=== PATIENT | male | born 1955 | race Caucasian/White ===

== ENCOUNTER → 2023-04-11 | Outpatient (CLI) | payer OTHER ==
[~2023-04-11] MED LIST: DIATR MEGLU/DIATRIZOATE SODIUM 30 ML BOTTLE ONE; FLUO20CA36 PO; SIMV-43 PO
== END | disposition home or self-care (01) ==
LOC: RAH 08:52
PROVIDERS: ATTEND Surgery
DX: K57.30 Diverticulosis of large intestine without perforation or abscess without bleeding (principal); Z93.2 Ileostomy status
CPT/HCPCS: 74270; Q9963 ×2

== ENCOUNTER 2023-04-22 15:00 | Inpatient (IN) | payer OTHER ==
[~2023-04-22] VITALS: Ht 174 cm; Wt 51.7 kg
[2023-04-22 13:16] VITALS: BP 104/53; PULSE 57; RESP 18
[2023-04-22 13:18] LABS: BASOPHILS # (AUTO) 0.02 K/uL (0.00-0.20); BASOPHILS % (AUTO) 0.2 % (0.0-5.0); EOSINOPHILS # (AUTO) 0.02 K/uL (0.00-0.70); EOSINOPHILS % (AUTO) 0.2 % (0.0-8.0); HEMATOCRIT 33.9 % (42-54); IMMATURE GRANULOCYTE ABSOLUTE 0.06 K/uL (0-1); LYMPHOCYTES # (AUTO) 0.7 K/uL (1.0-4.8); LYMPHOCYTES % (AUTO) 6.8 % (21.0-51.0); MEAN CORPUSCULAR HEMOGLOBIN 31.8 pg (27.0-33.0); MEAN CORPUSCULAR HGB CONC 33.6 g/dL (32.0-36.0); MEAN CORPUSCULAR VOLUME 94.7 fL (79-99); MONOCYTES # (AUTO) 1.3 K/uL (0.1-1.0); MONOCYTES % (AUTO) 11.8 % (3.0-13.0); NEUTROPHILS # (AUTO) 8.6 K/uL (1.8-7.7); NEUTROPHILS % (AUTO) 80.4 % (40.0-77.0); PLATELET COUNT (AUTO) 205 K/uL (130-400); RED BLOOD CELL COUNT(AUTO) 3.58 MIL/uL (4.50-6.20); RED CELL DISTRIBUTION WIDTH 14.8 % (11.0-15.5); WHITE BLOOD COUNT (AUTO) 10.7 K/uL (4.8-10.8)
[2023-04-22 13:29] LABS: INR < 0.93 (0.85-1.15); PROTHROMBIN TIME 10.2 SEC (9.6-11.6)
[2023-04-22 13:30] LABS: PARTIAL THROMBOPLASTIN TIME 24.1 SEC (26.3-35.5)
[2023-04-22 13:31] LABS: BILIRUBIN,TOTAL 0.2 mg/dL (0.2-1.0); CREATININE 0.7 mg/dL (0.5-1.5); POTASSIUM 5.1 mmol/L (3.5-5.1)
[~2023-04-22 15:00] MED LIST changes: -DIATR MEGLU/DIATRIZOATE SODIUM 30 ML BOTTLE ONE
[2023-04-29] VITALS (27 sets, daily range): BP systolic 114–144; BP diastolic 62–81; PULSE 65–75; RESP 15–21
[2023-04-29] MEDS ORDERED: LACTATED RINGERS 1000ML 1,000 ML IV ONE (09:25)
[2023-04-29] MEDS ORDERED: MEROPENEM 1 GM VIAL ONE (09:25)
[2023-04-29] MEDS ORDERED: BUPIVACAINE/PF 0.25% 30ML VIAL IJ ONE (09:33)
[2023-04-29] MEDS ORDERED: LIDOCAINE 1%-EPI 1:100,000 20 ML VIAL ONE (09:34)
[2023-04-29] MEDS ORDERED: FAMOTIDINE 20MG VIAL IV ONE (09:45)
[2023-04-29] MEDS ORDERED: HYDROMORPHONE 1 MG INJ ONE (09:45)
[2023-04-29] MEDS ORDERED: MIDAZOLAM HCL 1 MG/ML 2ML VIAL ONE (09:50)
[2023-04-29] MEDS ORDERED: FENTANYL CITRATE PF 50 MCG/1 ML 2ML VIAL ONE (09:52)
[2023-04-29] MEDS ORDERED: GLYCOPYRROLATE 1 MG/5 ML SYRINGE ONE (09:52)
[2023-04-29] MEDS ORDERED: LIDOCAINE PF 100MG/5ML (2%) SYRINGE 5ML ONE (09:52)
[2023-04-29] MEDS ORDERED: PROPOFOL 10 MG/ML 20ML VIAL IV ONE (09:52)
[2023-04-29] MEDS ORDERED: ROCURONIUM 10MG/1ML SYR 10 MG/ML ML ONE (09:53)
[2023-04-29] MEDS ORDERED: ONDANSETRON 4MG INJ ONE (10:07)
[2023-04-29] MEDS ORDERED: NEOSTIGMINE 5MG/5ML SYR IV ONE (10:46)
[2023-04-29] MEDS: HEPARIN 5,000 UNIT VIAL SQ SCH ×2 (11:29→20:10)
[2023-04-29] MEDS ORDERED: ONDANSETRON 4MG INJ IVP PRN (11:30)
[2023-04-29] MEDS: HYDROCODONE/ACETAMINOPHEN 5/325 MG TAB PO PRN (14:29)
[2023-04-29] MEDS: LACTATED RINGERS 1000ML 1,000 ML IV SCH (14:30)
[2023-04-29] MEDS: HYDROMORPHONE 0.5 MG SYG (0.5MG/0.5ML) IVP PRN ×2 (16:27→21:23)
[2023-04-30] VITALS (7 sets, daily range): BP systolic 119–152; BP diastolic 72–90; PULSE 69–87; RESP 17–20; O2SAT 98
[2023-04-30 03:52] LABS: BASOPHILS # (AUTO) 0.04 K/uL (0.00-0.20); BASOPHILS % (AUTO) 0.5 % (0.0-5.0); EOSINOPHILS # (AUTO) 0.08 K/uL (0.00-0.70); EOSINOPHILS % (AUTO) 0.9 % (0.0-8.0); IMMATURE GRANULOCYTE ABSOLUTE 0.04 K/uL (0-1); LYMPHOCYTES # (AUTO) 0.7 K/uL (1.0-4.8); LYMPHOCYTES % (AUTO) 7.8 % (21.0-51.0); MEAN CORPUSCULAR HEMOGLOBIN 31.9 pg (27.0-33.0); MEAN CORPUSCULAR HGB CONC 33.8 g/dL (32.0-36.0); MEAN CORPUSCULAR VOLUME 94.2 fL (79-99); MONOCYTES # (AUTO) 1.1 K/uL (0.1-1.0); MONOCYTES % (AUTO) 12.7 % (3.0-13.0); NEUTROPHILS # (AUTO) 6.7 K/uL (1.8-7.7); NEUTROPHILS % (AUTO) 77.6 % (40.0-77.0); PLATELET COUNT (AUTO) 212 K/uL (130-400); RED BLOOD CELL COUNT(AUTO) 3.61 MIL/uL (4.50-6.20); WHITE BLOOD COUNT (AUTO) 8.7 K/uL (4.8-10.8)
[2023-04-30 03:55] LABS: CREATININE 0.8 mg/dL (0.5-1.5); POTASSIUM 3.6 mmol/L (3.5-5.1)
[2023-04-30 04:52] LABS: WBC MORPHOLOGY CONSISTENT W/DIFF
[2023-04-30] MEDS: HEPARIN 5,000 UNIT VIAL SQ SCH ×2 (08:36→21:51)
[2023-04-30] MEDS: LACTATED RINGERS 1000ML 1,000 ML IV SCH (08:38)
[2023-04-30] MEDS: HYDROCODONE/ACETAMINOPHEN 5/325 MG TAB PO PRN ×2 (08:47→13:00)
[2023-04-30] MEDS ORDERED: ONDANSETRON 4MG TABLET PO PRN (17:30)
[2023-04-30] MEDS ORDERED: FLUOXETINE HCL 20 MG CAPSULE PO SCH (21:00)
[2023-04-30] MEDS ORDERED: SIMVASTATIN 20 MG TABLET PO SCH (21:00)
[2023-05-01] VITALS: BP 140/78; PULSE 82; RESP 20
[2023-05-01] MEDS: LACTATED RINGERS 1000ML 1,000 ML IV SCH (03:30)
[2023-05-01 03:57] LABS: BASOPHILS # (AUTO) 0.03 K/uL (0.00-0.20); BASOPHILS % (AUTO) 0.4 % (0.0-5.0); EOSINOPHILS # (AUTO) 0.06 K/uL (0.00-0.70); EOSINOPHILS % (AUTO) 0.7 % (0.0-8.0); HEMATOCRIT 34.1 % (42-54); IMMATURE GRANULOCYTE ABSOLUTE 0.02 K/uL (0-1); LYMPHOCYTES # (AUTO) 0.6 K/uL (1.0-4.8); LYMPHOCYTES % (AUTO) 7.5 % (21.0-51.0); MEAN CORPUSCULAR HGB CONC 33.7 g/dL (32.0-36.0); MEAN CORPUSCULAR VOLUME 91.9 fL (79-99); MONOCYTES % (AUTO) 11.9 % (3.0-13.0); NEUTROPHILS # (AUTO) 6.6 K/uL (1.8-7.7); NEUTROPHILS % (AUTO) 79.3 % (40.0-77.0); PLATELET COUNT (AUTO) 208 K/uL (130-400); RED BLOOD CELL COUNT(AUTO) 3.71 MIL/uL (4.50-6.20); RED CELL DISTRIBUTION WIDTH 15.2 % (11.0-15.5); WHITE BLOOD COUNT (AUTO) 8.3 K/uL (4.8-10.8)
[2023-05-01 04:00] VITALS: BP 149/77; PULSE 88; RESP 18
[2023-05-01 04:17] LABS: CREATININE 0.6 mg/dL (0.5-1.5); POTASSIUM 3.5 mmol/L (3.5-5.1)
[2023-05-01 08:20] VITALS: BP 134/81; PULSE 96; RESP 18
[2023-05-01] MEDS: HEPARIN 5,000 UNIT VIAL SQ SCH (08:44)
[2023-05-01 09:00] VITALS: O2SAT 96
== END 2023-05-01 12:00 | disposition home or self-care (01) | DRG 330 ==
LOC: DAHIP 04-29 08:14 → 4AH 04-29 12:20
PROVIDERS: ADMIT Surgery; ATTEND Surgery
PROC: 0DBB0ZZ Excision of Ileum, Open Approach (ICD-10-PCS; principal; 2023-04-29 09:49)
DX: Z43.2 Encounter for attention to ileostomy (principal); C20 Malignant neoplasm of rectum; F41.9 Anxiety disorder, unspecified; E78.5 Hyperlipidemia, unspecified; Z79.899 Other long term (current) drug therapy; Z85.048 Personal history of other malignant neoplasm of rectum, rectosigmoid junction, and anus
CPT/HCPCS: 36415; 80048; 80053; 85025; 85610; 85730; 86850; 86900; 86901; 88307; 93005; G0378; J1170; J1644; J2001; J2185; J2250; J2405; J2704; J2710; J3010; J3490; J7120; Q0162; A4215; A4221; A4222; A4223; A4452; A4649; A4663; A4930; A6260; J0665

== ENCOUNTER → 2024-07-23 | Outpatient (CLI) | payer OTHER ==
[~2024-07-23] MED LIST changes: +FLUO-418 PO; -FLUO20CA36 PO
[2024-07-23 13:52] LABS: ALBUMIN 3.2 g/dL (3.5-5.0); BILIRUBIN,TOTAL 0.5 mg/dL (0.2-1.0); CREATININE 0.8 mg/dL (0.5-1.3); POTASSIUM 4.3 mmol/L (3.5-5.1); TOTAL PROTEIN, SERUM 6.9 g/dL (6.0-8.3)
== END | disposition home or self-care (01) ==
LOC: LAB 12:59
PROVIDERS: ATTEND Surgery
DX: R10.31 Right lower quadrant pain (principal)
CPT/HCPCS: 36415; 80053

== ENCOUNTER → 2024-07-28 | Outpatient (CLI) | payer OTHER ==
[~2024-07-28] MED LIST changes: +IOHEXOL-350 75 ML VIAL IV ONE
--- NOTE | 2024-07-28 12:35 | HMCIMG ---
CT ABDOMEN/PELVIS W/WO CONTRAS HISTORY: Right lower abdominal pain COMPARISON: 03/02/2023 TECHNIQUE: Multiple sequential axial images of the abdomen and pelvis were obtained from the dome of the diaphragm through symphysis pubis. Patient was given 75 cc of Omnipaque through intravenous route. Oral contrast was given. FINDINGS: No pleural effusion is seen bilaterally. Stable right anterior chest wall fat-containing mass measuring 2.6 x 2.5 cm unchanged. Interna calcifications are also seen. COPD changes are seen. Coronary arterial calcifications are seen. There is no evidence of parenchymal disease or pulmonary nodule of the visualized lower lungs. Degenerative changes of the thoracolumbar spine are present. The heart is not enlarged. The liver, spleen, adrenal glands and pancreas are unremarkable. There is no evidence of hydronephrosis bilaterally. No evidence of renal stone is seen. Fecal material is seen in the colon. There are normal size retroperitoneal and mesenteric lymph nodes. No ascites is seen. Atherosclerotic changes are present. Pelvic sidewalls are symmetric bilaterally. Bladder is moderately distended. There is complex structure measuring 6.3 x 3.4 cm in the presacral area with air-fluid level may be related to abscess collection versus colon stump but other possibility not excluded. Clinical correlation is recommended. Left colostomy changes are seen. Contrast is seen within the colostomy bag. No obstruction is seen. IMPRESSION: 1. Bladder is moderately distended. There is complex structure measuring 6.3 x 3.4 cm in the presacral area with air-fluid level may be related to abscess collection versus colon stump but other possibility not excluded. Clinical correlation is recommended. Left colostomy changes are seen. Contrast is seen within the colostomy bag. No obstruction is seen. CT was performed with one or more following dose reduction techniques: automated exposure control, adjustment of the mA and kv according to patient's size, or use of a iterative reconstruction technique.
== END | disposition home or self-care (01) ==
LOC: RAH 07:38
PROVIDERS: ATTEND Surgery
DX: N32.89 Other specified disorders of bladder (principal); J44.9 Chronic obstructive pulmonary disease, unspecified; R10.31 Right lower quadrant pain; I25.10 Atherosclerotic heart disease of native coronary artery without angina pectoris; M47.815 Spondylosis without myelopathy or radiculopathy, thoracolumbar region; I70.90 Unspecified atherosclerosis; Z93.3 Colostomy status
CPT/HCPCS: 74178; Q9967